=== PATIENT | female | born 2000 | race Two or more races ===

== ENCOUNTER → 2020-12-16 | Emergency (ER) | payer OTHER ==
[~2020-12-16] VITALS: Ht 160 cm; Wt 69.9 kg
[~2020-12-16] MED LIST: ABILIFY10 MG; GOCOVRI68.5 MG; LAMICTAL5 MG; RESTORIL15 M1
== END | disposition designated cancer center or children's hospital (05) ==
LOC: EMR PED 09:43
DX: R21 Rash and other nonspecific skin eruption (principal); R50.9 Fever, unspecified; R74.01 Elevation of levels of liver transaminase levels; Z20.822 Contact with and (suspected) exposure to COVID-19